=== PATIENT | female | born 1945 | race Caucasian/White ===

== ENCOUNTER → 2018-08-06 09:02 | Outpatient (CLI) | payer MEDICARE, OTHER, SELFPAY ==
--- NOTE | 2018-08-06 | DI.MRI.S_ITS ---
PROCEDURE: MR SHOULDER RT WO CON INDICATIONS: RIGHT SHOULDER PAIN TECHNIQUE: Noncontrast oblique coronal T2 fast spin echo with fat saturation, oblique sagittal T1 spin echo and T2 fast spin echo with fat saturation, axial T1 spin echo and T2 fast spin echo with fat saturation through the shoulder. COMPARISON: None. FINDINGS: Image quality: Excellent. Rotator cuff: The supraspinatus tendon appears disrupted and retracted medially, with a separation of this rapid margins by at least 2.4 cm. Additionally, the subscapular tendon is prominently thickened, measuring up to 1.2 cm in oblique AP dimension, consistent with a partial thickness tear and reactive tendinosis. The intraspinal not as is thickened and edematous, but shows no sign of disruption. Sagittal images demonstrate no muscle atrophy. Bones and bursae: No bone marrow contusions or fractures. There is a moderate degree of acromioclavicular joint degeneration. Inferior tilt of the lateral acromion contributes to chronic impingement along the normal course of the supraspinatus tendon The acromion demonstrates conventional anatomy, without an os acromiale. No pathologic subacromial-subdeltoid or subcoracoid bursal fluid is present. Capsule and soft tissues: In the absence of intra-articular contrast, the labrum and glenohumeral ligaments appear intact. The long head of the biceps tendon demonstrates normal location and morphology. The rotator interval appears normal, without fibrosis. The coracohumeral ligament is normal in thickness. IMPRESSION: Full thickness distracted supraspinatus rotator cuff tear likely secondary to chronic impingement from inferior tilt of the lateral acromion and moderate a.c. joint osteoarthritis with fibrous and osseous hypertrophy. There also is prominent thickening with internal tendon fluid signal involving the subscapularis tendon and mild thickening with internal fluid signal involving the infraspinatus tendon. At least tendinopathy is present as cause of that appearance but the prominence of the thickening of the subscapularis indicates likelihood of partial thickness tear of the substance of this tendon anteriorly. Dictated by: Billy Willett M.D. on 08/09/2018 at 10:33 Approved by: Billy Willett M.D. on 08/09/2018 at 10:57
== END ==
PROVIDERS: Visit Provider Orthopaedic Surgery
DX: M25.511 Pain in right shoulder (principal); M19.011 Primary osteoarthritis, right shoulder; M75.121 Complete rotator cuff tear or rupture of right shoulder, not specified as traumatic
CPT/HCPCS: 73221

== ENCOUNTER → 2018-11-02 10:13 | Outpatient (CLI) | payer MEDICARE, OTHER, SELFPAY ==
[2018-11-02 11:00] LABS: Add Manual Diff / Slide Review NO; Basophils Absolute Auto 0 /uL (0-100); Basophils Percent Auto 0.7 % (0-2); Eosinophils Absolute Auto 0 /uL (0-450); Eosinophils Percent Auto 0.4 % (2-4); Hematocrit 37.3 % (36-46); Hemoglobin 12.7 g/dL (12.0-16.0); Lymphocytes Absolute Auto 1200 /uL (1100-4500); Lymphocytes Percent Auto 18.7 % (25-40); Mean Corpuscular Hemoglobin 30.1 PG (26-34); Mean Corpuscular Volume 88.4 fL (80-100); Monocytes Absolute Auto 400 /uL (0-900); Monocytes Percent Auto 6.3 % (3-14); Neutrophils Absolute Auto 4800 /uL (1500-7000); Neutrophils Percent Auto 73.9 % (50-75); Platelet Count 358 X10^3/uL (150-400); Red Blood Cell Count 4.22 X10^6/uL (4.0-5.2); Red Cell Distribution Width 14.4 % (11.6-14.8); White Blood Cell Count 6.5 X10^3/uL (4.5-11.0)
[2018-11-02 11:11] LABS: Alanine Aminotransferase 30 IU/L (9-52); Albumin 4.3 g/dL (3.5-5.0); Albumin Globulin Ratio 1.5 (1.0-2.8); Alkaline Phosphatase 64 U/L (38-126); Aspartate Aminotransferase 20 IU/L (14-36); BUN Creatinine Ratio 22.9 (6-22); Bilirubin Total 0.4 mg/dL (0.2-1.3); Blood Urea Nitrogen 16 mg/dL (7-17); Calcium 10.3 mg/dL (8.4-10.2); Carbon Dioxide 27 mmol/L (22-32); Chloride 104 mmol/L (98-107); Cholesterol 254 mg/dL (140-199); Estimated Glomerular Filt Rate > 60.0 mL/min (>60); Globulin 2.9 g/dL (1.7-4.1); Glucose 110 mg/dL (80-110); HDL Cholesterol 74 mg/dL (40-60); HEMOLYSIS < 15 (0-50); LDL Cholesterol Calculated 155 mg/dL (<100); Potassium 4.2 mmol/L (3.4-5.1); Sodium 141 mmol/L (137-145); Total Protein 7.2 g/dL (6.3-8.2); Triglycerides 124 mg/dL (35-150)
[2018-11-02 11:22] LABS: Free T3, Triiodothyronine Free 4.85 pg/mL (2.77-5.27); Free T4, Direct Thyroxine 1.85 ng/dL (0.78-2.19); Vitamin D 25 Hydroxy (D3) 36.9 ng/mL (30.0-100.0)
[2018-11-02 11:36] LABS: Thyroid Stimulating Hormone 0.02 uIU/mL (0.47-4.68)
[2018-11-02 11:54] LABS: Vitamin B12 878 pg/mL (239-931)
[2018-11-04 22:26] LABS: RPR Screen Nonreactive (Nonreactive)
== END ==
PROVIDERS: Visit Provider Internal Medicine
DX: R41.3 Other amnesia (principal); E03.9 Hypothyroidism, unspecified; E55.9 Vitamin D deficiency, unspecified; E78.5 Hyperlipidemia, unspecified
CPT/HCPCS: 36415; 80053; 80061; 82306; 82607; 84439; 84443; 84481; 85025; 86592

== ENCOUNTER → 2019-04-05 11:19 | Outpatient (CLI) | payer MEDICARE, OTHER, SELFPAY ==
[2019-04-05 12:25] LABS: Free T4, Direct Thyroxine 1.29 ng/dL (0.78-2.19)
[2019-04-05 12:39] LABS: Thyroid Stimulating Hormone 0.19 uIU/mL (0.47-4.68)
[2019-04-09 18:30] LABS: Triiodothyronine T3 Total 94 ng/dL (76-181)
== END ==
PROVIDERS: PCP Internal Medicine; Visit Provider Internal Medicine
DX: E03.9 Hypothyroidism, unspecified (principal)
CPT/HCPCS: 36415; 84439; 84443; 84480

== ENCOUNTER → 2019-06-01 10:34 | Outpatient (CLI) | payer MEDICARE, OTHER, SELFPAY ==
[2019-06-01 12:52] LABS: Free T4, Direct Thyroxine 1.13 ng/dL (0.78-2.19)
[2019-06-01 13:06] LABS: TSH w/ Reflex to FT4 1.48 uIU/mL (0.47-4.68)
[2019-06-03 14:35] LABS: Triiodothyronine T3 Total 121 ng/dL (76-181)
== END ==
PROVIDERS: PCP Internal Medicine; Referring Provider Internal Medicine; Visit Provider Internal Medicine
DX: E03.9 Hypothyroidism, unspecified (principal)
CPT/HCPCS: 36415; 84439; 84443; 84480

== ENCOUNTER → 2019-09-09 09:13 | Outpatient (CLI) | payer MEDICARE, OTHER, SELFPAY ==
--- NOTE | 2019-09-09 | DI.RAD.S_ITS ---
PROCEDURE: XR ANKLE RT MIN 3V INDICATIONS: ACUTE RT ANKLE PAIN TECHNIQUE: 3 views of the ankle were acquired. COMPARISON: None. FINDINGS: Bones: No fractures or dislocations. Ankle mortise is normally aligned. No suspicious bony lesions. Chronic posterior calcaneal heterotopic ossification. Spurring and sclerosis at the tip of the lateral malleolus although this is technically age-indeterminate. Soft tissues: No tibiotalar joint effusion. Achilles tendon appears normal. IMPRESSION: Fracture deformity and lucency at the tip of the lateral malleolus, possibly acute however radiographically age-indeterminate, therefore please correlate clinically. Overlying soft tissue swelling. Chronic distal Achilles tendinopathy Dictated by: Vincent Carvajal M.D. on 09/09/2019 at 12:37 Approved by: Vincent Carvajal M.D. on 09/09/2019 at 12:39
--- NOTE | 2019-09-09 09:18 | DI.CT.S_ITS ---
PROCEDURE: CT ABDOMEN PELVIS W CON INDICATIONS: ABDOMINAL DISTENSION X SIX MONTHS TECHNIQUE: After the administration of oral and intravenous contrast, 5 mm thick sections acquired from the diaphragms to the symphysis. 5 mm thick coronal and sagittal reformats were performed. For radiation dose reduction, the following was used: automated exposure control, adjustment of mA and/or kV according to patient size. COMPARISON: None. FINDINGS: Image quality: Excellent. ABDOMEN: Lung bases: Lung bases are clear. 5 mm subpleural nodule noted in the left lung base (series 3, image 6). Heart size is normal. Solid organs: Liver is normal in size and enhancement. Mild, diffuse fatty infiltration of the liver Gallbladder is normal. Biliary system is non-dilated. Pancreas enhances normally. Spleen is normal in size and enhancement. No adrenal nodules. Kidneys are normal in size and enhancement, without hydronephrosis. Peritoneum and bowel: Moderate-sized hiatal hernia. Stomach, small bowel, and colon loops are normal in caliber and wall thickness. No free fluid or air. The appendix is normal. Nodes and vessels: No retroperitoneal or mesenteric adenopathy. Aorta and inferior vena cava are normal in caliber. Miscellaneous: Small fat-containing umbilical hernia. PELVIS: Genitourinary: Bladder wall thickness is normal. Uterus is absent. Miscellaneous: No inguinal hernias or adenopathy. Bones: No suspicious bony lesions. No vertebral body compression fractures. Spine degenerative disc disease and facet arthropathy. IMPRESSION: 1. No acute disease process. 2. No free fluid or free air. 3. No dilated loops of bowel. 4. Hepatic steatosis. 5. Moderate-sized hiatal hernia. Dictated by: Juliane Joshua MD, PhD on 09/09/2019 at 11:47 Approved by: Juliane Joshua MD, PhD on 09/09/2019 at 11:53
[2019-09-09 09:58] LABS: BUN Creatinine Ratio 19.1 (6-22); Blood Urea Nitrogen 13 mg/dL (7-17); Estimated Glomerular Filt Rate > 60.0 mL/min (>60)
== END ==
PROVIDERS: PCP Internal Medicine; Referring Provider Internal Medicine; Visit Provider Internal Medicine
DX: M25.571 Pain in right ankle and joints of right foot (principal); R60.0 Localized edema; R14.0 Abdominal distension (gaseous); K76.0 Fatty (change of) liver, not elsewhere classified; R91.1 Solitary pulmonary nodule; K44.9 Diaphragmatic hernia without obstruction or gangrene; K42.9 Umbilical hernia without obstruction or gangrene
CPT/HCPCS: 36415; 73610; 74177; 82565; 84520

== ENCOUNTER → 2020-02-08 13:18 | Outpatient (CLI) | payer MEDICARE, OTHER, SELFPAY ==
--- NOTE | 2020-02-08 | DI.CT.S_ITS ---
PROCEDURE: CT CHEST WO CON INDICATIONS: follow up lung nodule, cough TECHNIQUE: Noncontrast 2.0-2.5 mm thick sections acquired from the pulmonary apices to the posterior costophrenic angles. 7 mm thick axial MIP and 5 mm coronal and sagittal reformats were then acquired. A low radiation dose technique was utilized. COMPARISON: [facility], CT, CT ABDOMEN PELVIS W CON, 09/09/2019, 10:28. FINDINGS: Image quality: Diagnostic, given the low radiation dose technique. Lungs and pleura: No effusions or consolidations. Previously identified subpleural 5 mm left basilar nodule on series 3, image 213 is unchanged. No additional pulmonary nodules are identified. Mediastinum: Heart size is normal. No pericardial effusion. No mediastinal adenopathy by size criteria. Thoracic aorta and central pulmonary arteries are normal in size. Esophagus is normal in caliber. Mild hiatal hernia. Bones and chest wall: No suspicious bony lesions. No vertebral body compression fractures. No axillary or supraclavicular adenopathy by size criteria. Thyroid gland is unremarkable . Abdomen: Visualized upper abdomen solid organs and bowel loops appear normal in the absence of contrast. IMPRESSION: 1. Stable 5 mm left lower lobe nodule originally identified on 09/09/2019. Recommend interval follow-up as below, as it is nonspecific in appearance. Fleischner Society criteria for SOLID lung nodule followup. Nodule size (mm)Low-risk patientHigh-risk patient<6 (single or multiple)No routine followup.Optional CT at 12 months. 6-8 (single or multiple)CT at 6-12 months, then optional CT at 18-24 mo.CT at 6-12 months, then CT at 18-24 months. >8 (single)CT at 3 months, PET-CT, or biopsy. Same as for low-risk pts. >8 (multiple)CT at 3-6 months, then optional CT at 18-24 mo.CT at 3-6 months, then CT at 18-24 months. Recommendations do not apply to lung cancer screening, patients with immunosuppression, or patients with known primary cancer. Dictated by: Danielle Vanessa M.D. on 02/08/2020 at 16:01 Approved by: Danielle Vanessa M.D. on 02/08/2020 at 16:03
== END ==
PROVIDERS: PCP Internal Medicine; Referring Provider Internal Medicine; Visit Provider Internal Medicine
DX: R91.1 Solitary pulmonary nodule (principal); R05 Cough; K44.9 Diaphragmatic hernia without obstruction or gangrene
CPT/HCPCS: 71250

== ENCOUNTER → 2020-07-11 10:36 | Outpatient (CLI) | payer MEDICARE, OTHER, SELFPAY ==
[2020-07-11 11:58] LABS: COVID19 -Nasal RAPID Negative (Negative)
== END ==
PROVIDERS: PCP Family Medicine; Visit Provider Surgery
DX: Z20.822 Contact with and (suspected) exposure to COVID-19 (principal)
CPT/HCPCS: 87635; C9803

== ENCOUNTER 2020-07-12 12:04 | Day surgery (SDC) | payer MEDICARE, OTHER, SELFPAY ==
[2020-07-12] VITALS (8 sets, daily range): BP systolic 124–143; BP diastolic 66–78; PULSE 98–114; RESP 12–20; TEMP 36.2–37.4; O2SAT 95–98; BMI 27.9
--- NOTE | 2020-07-12 | PATH_ITS ---
[facility] Accession Number: [id number] . 01 Material submitted: . colon - TRANSVERSE COLON POLYP . 01 Clinical history: . SDC . 02 Diagnosis: Transverse Colon Polyp: Portions of tubular adenoma x5. MRV 07/16/2020 1321 Local . 02 Electronically signed: . Paloma Nuñez MD, Pathologist NPI- [id number] . 01 Gross description: . TRANSVERSE COLON POLYP: Received in formalin are 5 fragment(s) of pérez, soft tissue measuring 0.4 x 0.3 x 0.1 cm to 0.2 x 0.2 x 0.1 cm submitted entirely in 1 cassette(s) /QBJ 07/13/2020 0619 Local . 02 Pathologist provided ICD-10: Z12.11, K63.5 . 02 CPT . 978622 Performed at: 01 [facility] [address] [facility], [place], [place] [id number] MD Isrrael Hawthorne MD Phone: [phone] Performed at: 02 [facility] [address] [place], [place] [id number] MD Yanna Berry MD Phone: [phone]
[2020-07-12] MEDS: LACTATED RINGERS 1,000 ML 200 ML IV (12:50)
--- NOTE | 2020-07-12 13:17 | PM.HP.1 ---
History of Present Illness History of Present Illness Date Patient Seen: 07/12/20 Time Patient Seen: 13:17 Chief complaint: [facility] Narrative: The patient presents for colorectal sreening. She does have some memory difficulty she is unsure if she has ever had a previous colonoscopy. No personal or family history of colon cancer. On further history denies any recent gastrointestinal symptoms. No nausea, vomiting, abdominal pain, loss of appetite, unexplained weight loss, change in bowel habits, diarrhea, constipation, melena, hematochezia, or bright red blood per rectum. Patient History Medical History Depression GERD (gastroesophageal reflux disease) Hormone replacement therapy Hyperlipidemia Hypothyroidism Preventative health care Surgical History H/O: hysterectomy Family & Social History Social History: household members spouse Tobacco & Substance use: Tobacco type cigarettes Smoking Status Former smoker alcohol intake current alcohol intake frequency a few times a week Substance Use Type marijuana Meds Home Medications and Allergies Home Medications Medication Instructions Recorded Confirmed Type acetaminophen 500 mg tablet 500 mg PO Q6H PRN 06/06/20 History aluminum hydrox-magnesium carb PO 06/06/20 History atorvastatin 20 mg tablet 20 mg PO QPM 06/06/20 History butalbital 50 mg-acetaminophen 300 1 tab PO Q4H PRN 06/06/20 History mg tablet calcium carbonate 200 mg calcium 200 mg PO ONCE tab 06/06/20 History (500 mg) chewable tablet calcium carbonate-vitamin D3 600 1 tab PO DAILY 06/06/20 History mg (1,500 mg)-800 unit tablet cholecalciferol (vitamin D3) 25 25 mcg PO DAILY 06/06/20 History mcg (1,000 unit) capsule clindamycin phosphate 1 % lotion 1 applic TOPICAL DAILY PRN 06/06/20 History clotrimazole 2 % vaginal cream 1 appful VAGINAL BEDTIME 06/06/20 History cyclosporine 0.05 % eye drops drp OPHTHALMIC (EYE) 06/06/20 History diphenhydramine HCl 25 mg tablet 25 mg PO Q4-6H PRN tab 06/06/20 History docusate sodium 100 mg capsule 100 mg PO DAILY 06/06/20 History doxycycline hyclate 50 mg capsule 50 mg PO DAILY 06/06/20 History estradiol 1 g VAGINAL QWEEK 06/06/20 History fluticasone propionate 50 2 spray INTRANASAL DAILY 06/06/20 History mcg/actuation nasal spray,suspension food supplemt, lactose-reduced ea PO PRN 06/06/20 History levothyroxine 125 mcg tablet 125 mcg PO .COMPLEX 06/06/20 History lip protectant, cold sore prd ea TOPICAL 06/06/20 History topical ointment loperamide 1 mg/5 mL oral liquid See Rx Instructions PO Q6H PRN 06/06/20 History lutein-zeaxanthin PO 06/06/20 History magnesium citrate 125 mg capsule 250 mg PO DAILY 06/06/20 History mecobalamin (vitamin B12) 1,000 1,000 mcg PO TID tab 06/06/20 History mcg chewable tablet melatonin 5 mg tablet See Rx Instructions PO BEDTIME PRN 06/06/20 History memantine 5 mg tablet 5 mg PO BID 06/06/20 History mesalamine 1,000 mg rectal 1 g KS BEDTIME 06/06/20 History suppository mupirocin 2 % topical ointment 1 applic TOPICAL TID 06/06/20 History omeprazole 20 mg capsule,delayed 20 mg PO DAILY 06/06/20 History release pantoprazole 40 mg tablet,delayed 40 mg PO DAILY 06/06/20 History release promethazine 25 mg tablet 25 mg PO Q6H PRN 06/06/20 History sumatriptan succinate 100 mg tablet See Rx Instructions PO .COMPLEX 06/06/20 History vit C 250 mg-vit E 90 mg-zinc 40 1 tab PO BID 06/06/20 History mg-copper 1 [id number]-manptg capsule robbie alex 50 % topical pads 1 pad TOPICAL BID-QID PRN 06/06/20 History mirtazapine 15 mg tablet 15 mg PO BEDTIME #90 tab 06/11/20 Rx quetiapine 25 mg tablet 75 mg PO BEDTIME #270 tab 07/09/20 Rx Allergies Allergy/AdvReac Type Severity Reaction Status Date / Time No Known Drug Allergies Allergy Verified 07/12/20 12:21 Review of Systems Review of Systems ROS: Yes unobtainable due to mental condition (Dementia) Exam Vital Signs (past 8 hours): - 07/12/20 12:22 Temperature 97.2 F L Pulse Rate 114 H Respiratory Rate 16 Blood Pressure 124/72 Pulse Oximetry 96 Oxygen Delivery Method Room Air Narrative Exam Narrative: GENERAL-well developed elderly woman, no acute distress HEENT-no scleral icterus, hearing intact NECK-no JVD, trachea midline CVS- regular rate, no peripheral edema RESP-unlabored respiratory effort, no audible wheezing GI-soft, nontender nondistended MSK-no cyanosis or clubbing, extremities without deformity SKIN-warm, dry NEURO-alert and oriented, no focal deficits PYSCH-Appropriate mood and affect Assessment & Plan Assessment & Plan narrative: The patient requires colorectal screening and colonoscopy is recommended. Technical details were discussed. Risks, benefits, alternatives explained. Risks including but not limited to myocardial infarction, aspiration, bleeding, pain, missed lesion, incomplete examination, need for further radiographic studies, colonic perforation, and need for major abdominal surgery were discussed. All questions were answered to their satisfaction, and they are in agreement with this plan.
[2020-07-12] MEDS: ONDANSETRON 4 MG/2 ML INJ IV (13:56)
--- NOTE | 2020-07-12 14:05 | PM.OP.ENDO ---
Operative Date/Time/Diagnoses Date of procedure: 07/12/20 Time of procedure: 14:05 Pre-op diagnosis: screening colonoscopy Post-op diagnosis: same Procedure & Clinicians Study performed: Colonoscopy Polypectomy Same procedure as scheduled: Yes Indications: 75-year-old woman last colonoscopy greater than 10 years ago here for routine screening. Surgeon: Jimmy Son Procedure Notes Procedure in detail: Medications: Conscious sedation using 3mg IV midazolam and 100mcg IV of fentanyl The history and physical was performed/updated and the patient is ASA class is 2. The procedure was discussed in detail with the patient. Potential risks complications including infection, bleeding, missed diagnosis, perforation, need for surgery, and were explained. Their questions were answered and informed consent was obtained. Patient was brought to the procedure room and placed standard monitoring equipment. The patient's vital signs were monitored continuously throughout the entire procedure. Prior to starting time-out was performed. The patient was placed in the left lateral recumbent position. Procedural sedation was administered. Examination began with a thorough inspection of the perianal area there was no evidence of fissures, fistulae, external hemorrhoids or cutaneous malignancy. The colonoscopy scope was then placed into the anal canal and was advanced to the cecum, which was identified by the ileocecal valve, the appendiceal orifice and the confluence of the taenia. The scope was then slowly withdrawn examining colon thoroughly in all directions, irrigating it of any residual stool. 5 mm polyp within the transverse colon removed with biopsy forceps. Grade 1 internal him The patient tolerated the procedure well. They will be discharged once criteria are met. The prep was of good/excellent quality. The withdrawl time was 7 minutes. The sedation time was 36 minutes. Specimen(s): other (Transverse colon polyp) Complications: none Impression: Colonic polyp Post-procedure Recommendations: Colonscopy in 5 years Disposition: same day surgery
[2020-07-12] MEDS: fentaNYL 250 MCG/5 ML INJ IV (14:07)
[2020-07-12] MEDS: MIDAZOLAM 5 MG/5 ML VIAL IV (14:07)
== END 2020-07-12 15:09 | disposition home or self-care (01) ==
PROVIDERS: PCP Family Medicine; Referring Provider Surgery; Visit Provider Surgery
PROC: 0DJD8ZZ Inspection of Lower Intestinal Tract, Via Natural or Artificial Opening Endoscopic (ICD-10-PCS; CPT 45378; principal; 2020-07-12 13:00)
DX: Z12.11 Encounter for screening for malignant neoplasm of colon (principal); K21.9 Gastro-esophageal reflux disease without esophagitis; E78.5 Hyperlipidemia, unspecified; E03.9 Hypothyroidism, unspecified; K64.0 First degree hemorrhoids; K63.5 Polyp of colon
CPT/HCPCS: 45380; 99152; 99153; J2250; J2405; J3010

== ENCOUNTER → 2020-10-30 14:36 | Outpatient (CLI) | payer MEDICARE, OTHER, SELFPAY ==
[2020-10-30 16:08] LABS: Alanine Aminotransferase 31 IU/L (<35); Albumin 4.5 g/dL (3.5-5.0); Albumin Globulin Ratio 1.3 (1.0-2.8); Alkaline Phosphatase 106 U/L (38-126); Aspartate Aminotransferase 36 IU/L (14-36); BUN Creatinine Ratio 14.8 (6-22); Bilirubin Total 0.4 mg/dL (0.2-1.3); Blood Urea Nitrogen 12 mg/dL (7-17); Calcium 9.6 mg/dL (8.4-10.2); Carbon Dioxide 29 mmol/L (22-32); Chloride 104 mmol/L (98-107); Estimated Glomerular Filt Rate > 60.0 mL/min (>60); Globulin 3.4 g/dL (1.7-4.1); Glucose 104 mg/dL (80-110); HEMOLYSIS < 15 (0-50); Potassium 4.1 mmol/L (3.4-5.1); Sodium 140 mmol/L (137-145); Total Protein 7.9 g/dL (6.3-8.2)
== END ==
PROVIDERS: PCP Family Medicine; Referring Provider Registered Nurse; Visit Provider Registered Nurse
DX: M79.89 Other specified soft tissue disorders (principal)
CPT/HCPCS: 36415; 80053

== ENCOUNTER → 2020-12-04 15:50 | Outpatient (CLI) | payer MEDICARE, OTHER, SELFPAY ==
[2020-12-04 17:44] LABS: Alanine Aminotransferase 26 IU/L (<35); Albumin 4.7 g/dL (3.5-5.0); Albumin Globulin Ratio 1.4 (1.0-2.8); Alkaline Phosphatase 107 U/L (38-126); Aspartate Aminotransferase 30 IU/L (14-36); BUN Creatinine Ratio 19.2 (6-22); Bilirubin Total 0.5 mg/dL (0.2-1.3); Blood Urea Nitrogen 15 mg/dL (7-17); Calcium 10.2 mg/dL (8.4-10.2); Carbon Dioxide 30 mmol/L (22-32); Chloride 102 mmol/L (98-107); Cholesterol 190 mg/dL (140-199); Estimated Glomerular Filt Rate > 60.0 mL/min (>60); Globulin 3.4 g/dL (1.7-4.1); Glucose 104 mg/dL (80-110); HDL Cholesterol 54 mg/dL (40-60); HEMOLYSIS < 15 (0-50); LDL Cholesterol Calculated 105 mg/dL (<100); Potassium 4.5 mmol/L (3.4-5.1); Sodium 140 mmol/L (137-145); Total Protein 8.1 g/dL (6.3-8.2); Triglycerides 153 mg/dL (35-150)
[2020-12-04 17:57] LABS: Free T4, Direct Thyroxine 1.18 ng/dL (0.78-2.19)
[2020-12-04 18:11] LABS: Thyroid Stimulating Hormone 7.41 uIU/mL (0.47-4.68)
== END ==
PROVIDERS: PCP Family Medicine; Referring Provider Family Medicine; Visit Provider Family Medicine
DX: E03.9 Hypothyroidism, unspecified (principal); F32.9 Major depressive disorder, single episode, unspecified; E78.5 Hyperlipidemia, unspecified
CPT/HCPCS: 36415; 80053; 80061; 84439; 84443

== ENCOUNTER → 2021-01-21 | Outpatient (CLI) | payer MEDICARE, OTHER, SELFPAY ==
--- NOTE | 2021-01-21 15:21 | DI.MG.S_ITS ---
BILATERAL DIGITAL SCREENING MAMMOGRAM 3D/2D WITH CAD: 01/21/2021 CLINICAL: Routine screening. Family history of breast cancer. Baseline. No prior exams were available for comparison. Current study was also evaluated with a Computer Aided Detection (CAD) system. The tissue of both breasts is heterogeneously dense. This may lower the sensitivity of mammography. There are grouped fine calcifications in the right breast at 11 o'clock posterior depth. No other significant masses, calcifications, or other findings are seen in either breast. IMPRESSION: INCOMPLETE: NEEDS ADDITIONAL IMAGING EVALUATION The grouped fine calcifications in the right breast are indeterminate. Mediolateral, spot magnification, and additional views are recommended. This exam was interpreted at Station ID: [id number]. NOTE: For mammograms, a report in lay terms will be sent to the patient. Approximately 15% of breast malignancies will not be visualized mammographically. In the management of a palpable breast mass, a negative mammogram must not discourage biopsy of a clinically suspicious lesion. Electronically Signed By: Isrrael duckworth/:01/31/2021 16:53:20 letter sent: Additional Imaging Needed ACR BI-RADS Category 0: Incomplete [id number]
== END ==
LOC: MAMMO 15:21
PROVIDERS: PCP Family Medicine; Referring Provider Family Medicine; Visit Provider Family Medicine
DX: Z12.31 Encounter for screening mammogram for malignant neoplasm of breast (principal); Z80.3 Family history of malignant neoplasm of breast
CPT/HCPCS: 77063; 77067

== ENCOUNTER → 2021-02-26 12:35 | Outpatient (CLI) | payer MEDICARE, OTHER, SELFPAY ==
--- NOTE | 2021-02-26 | DI.MG.S_ITS ---
BILATERAL DIGITAL DIAGNOSTIC MAMMOGRAM 3D/2D WITH ADDITIONAL VIEWS: 02/26/2021 CLINICAL: Abnormal Mammogram. Comparison is made to exams dated: 01/21/2021 mammogram - [facility], 08/10/2017 mammogram, 06/20/2015 mammogram, and 05/18/2015 mammogram - [facility]. The tissue of both breasts is heterogeneously dense. This may lower the sensitivity of mammography. There are benign grouped fine calcifications in the right breast at 11 o'clock posterior depth. There is a biopsy clip associated with the calcifications. These calcifications do not appear significantly changed when compared to prior exams dating back to 05/18/2015, and are therefore considered benign. There are benign diffuse fine calcifications in the left breast. No other significant masses or calcifications are seen in either breast. IMPRESSION: BENIGN There is no mammographic evidence of malignancy. A 1 year screening mammogram is recommended. This exam was interpreted at Station ID: [id number]. NOTE: For mammograms, a report in lay terms will be sent to the patient. Approximately 15% of breast malignancies will not be visualized mammographically. In the management of a palpable breast mass, a negative mammogram must not discourage biopsy of a clinically suspicious lesion. Electronically Signed By: Ronald logan/sourav:02/26/2021 13:50:56 letter sent: Normal Exam ACR BI-RADS Category 2: Benign Finding(s) 3342F
== END ==
PROVIDERS: PCP Family Medicine; Referring Provider Family Medicine; Visit Provider Family Medicine
DX: R92.8 Other abnormal and inconclusive findings on diagnostic imaging of breast (principal); R92.1 Mammographic calcification found on diagnostic imaging of breast
CPT/HCPCS: 77066; G0279

== ENCOUNTER → 2021-08-12 10:53 | Outpatient (CLI) | payer MEDICARE, OTHER, SELFPAY ==
[2021-08-12 13:41] LABS: COVID19 -Nasal RAPID Negative (Negative)
== END ==
PROVIDERS: PCP Family Medicine; Visit Provider Family Medicine Sleep Medicine
DX: Z20.822 Contact with and (suspected) exposure to COVID-19 (principal)
CPT/HCPCS: 87635; C9803

== ENCOUNTER 2021-08-14 09:01 | Day surgery (SDC) | payer MEDICARE, OTHER, SELFPAY ==
--- NOTE | 2021-08-14 | PATH_ITS ---
[facility] Accession Number: [id number] . 01 Material submitted: . PART A: body - GASTRITIS PART B: gastrointestinal site - GASTRIC POLYPS . 01 Clinical history: . A: R/O H. PYLORI . 01 Diagnosis: A. Stomach, Biopsies: Antral and body-type mucosa with mild chronic gastritis. Negative for Helicobacter by immunohistochemistry. Negative for intestinal metaplasia. Negative for dysplasia and malignancy. . B. Stomach, Polyps, Biopsies: Fundic gland polyps. No evidence of Helicobacter organisms on H/E stain. Negative for intestinal metaplasia. Negative for dysplasia and malignancy. MRV 08/19/2021 1255 Local . 01 Electronically signed: . Yanna Berry MD, Pathologist NPI- [id number] . 01 Gross description: . Part A: GASTRITIS: Received in formalin are 3 fragment(s) of pérez, soft tissue measuring 0.3 x 0.2 x 0.1 cm to 0.2 x 0.1 x 0.1 cm submitted entirely in 1 cassette(s) Part B: GASTRIC POLYPS: Received in formalin are 4 fragment(s) of pérez, soft tissue measuring 0.3 x 0.2 x 0.1 cm to 0.2 x 0.1 x 0.1 cm submitted entirely in 1 cassette(s) /CPE 08/15/2021 0845 Local . 01 Microscopic: . A. An immunohistochemical stain was performed to evaluate for Helicobacter organisms and is negative. The control stain showed appropriate reactivity. . * This test was developed and its performance characteristics determined by [employer]. It has not been cleared or approved by the U.S. Food and Drug Administration. The FDA has determined that such clearance or approval is not necessary. This test is used for clinical purposes. It should not be regarded as investigational or for research. . 01 Pathologist provided ICD-10: R11.0 . 01 CPT . 315736, 010879, J07436 Specimen Comment: A courtesy copy of this report has been sent to [phone] Performed at: 01 [facility] [address] [place] [id number] MD Isrrael Hawthorne MD Phone: [phone]
[2021-08-14 09:34] VITALS: BMI 28.7
[2021-08-14 09:48] VITALS: BP 128/75; PULSE 114; RESP 94; TEMP 36.2
[2021-08-14] MEDS: SODIUM CHLORIDE 0.9% 1,000 ML 70 ML IV (10:08)
--- NOTE | 2021-08-14 10:55 | PM.HP.1 ---
History of Present Illness History of Present Illness Date Patient Seen: 08/14/21 Time Patient Seen: 10:45 Chief complaint: SDC Narrative: Patient is a very pleasant 76-year-old female who presented for upper endoscopy. She denies changes to her symptoms since she was seen in the office for nausea, vomiting, and symptoms of heartburn. This gentleman may have been more regurgitation after eating. She states the symptoms have slightly improved since her office visit. Patient History Medical History Abnormal mammogram of left breast Dementia Depression GERD (gastroesophageal reflux disease) Hyperlipidemia Hypothyroidism Preventative health care Seborrheic keratosis Swelling of lower extremity Surgical History (Updated 08/14/21 @ 09:30 by Sarah Che RN) H/O: hysterectomy History of colonoscopy History of esophagogastroduodenoscopy (EGD) History of tonsillectomy Family & Social History Family History (Updated 12/11/20 @ 09:35 by Grupo Brooks DO) Father Congestive heart failure Mother Cancer Social History: household members spouse Tobacco & Substance use: Tobacco type cigarettes Smoking Status Former smoker alcohol intake current alcohol intake frequency a few times a week Substance Use Type marijuana Meds Home Medications and Allergies Home Medications Medication Instructions Recorded Confirmed Type calcium carbonate 200 mg calcium 200 mg PO ONCE tab 06/06/20 08/14/21 History (500 mg) chewable tablet (Tums) cholecalciferol (vitamin D3) 25 2,000 unit PO DAILY 06/06/20 08/14/21 History mcg (1,000 unit) capsule lutein-zeaxanthin 1 tab PO DAILY 06/06/20 08/14/21 History memantine 5 mg tablet 5 mg PO BID 06/06/20 08/14/21 History vit C 250 mg-vit E 90 mg-zinc 40 1 tab PO BID 06/06/20 08/14/21 History mg-copper 1 [id number] capsule (PreserVision AREDS-2) atorvastatin 20 mg tablet 20 mg PO QPM #90 tab 02/01/21 08/14/21 Rx levothyroxine 150 mcg tablet 150 mcg PO DAILY #90 tab 03/06/21 08/14/21 Rx mirtazapine 15 mg tablet 15 mg PO BEDTIME #90 tab 03/15/21 08/14/21 Rx mesalamine 1,000 mg rectal See Rx Instructions .ROUTE 08/02/21 08/14/21 Rx suppository .COMPLEX #30 suppository quetiapine 25 mg tablet 75 mg PO SEEINSTR 08/14/21 08/14/21 History Allergies Allergy/AdvReac Type Severity Reaction Status Date / Time meperidine [From Demerol] AdvReac Intermediate hallucinati Verified 08/14/21 09:38 ons codeine AdvReac Mild hyper Verified 08/14/21 09:38 attentive Review of Systems Review of Systems ROS: Yes All systems reviewed with the patient and are negative except as otherwise documented Exam Vital Signs (past 8 hours): - 08/14/21 09:48 Temperature 97.1 F L Pulse Rate 114 H Respiratory Rate 94 H Blood Pressure 128/75 Oxygen Delivery Method Room Air Const General: cooperative, healthy appearing, comfortable, well developed, well groomed and No acute distress HENMT Head: normocephalic and atraumatic Resp Effort & Inspection: normal respiratory effort and able to speak in complete sentences Auscultation: clear to auscultation bilaterally Cardio Rate: regular rate Rhythm: regular rhythm GI Palpation: soft and No rigid Assessment & Plan Assessment & Plan narrative: 1. EGD today, further recommendations to follow Time Spent With Patient Critical Care time: I spent a total of [] minutes of critical care time on this patient's care today; this time is exclusive of procedural time.
[2021-08-14 11:26] VITALS: BP 121/60; PULSE 97; RESP 20; TEMP 36.4; O2SAT 94
--- NOTE | 2021-08-14 11:27 | P.OP.EGD_ITS ---
Operative Date/Time/Diagnoses Date of procedure: 08/14/21 Time of procedure: 11:07 Procedure Notes Procedure in detail: Surgeon: Jeny Rowley DO Procedure: Esophagogastroduodenoscopy with biopsy and dilation Preoperative diagnosis: 1. Nausea vomiting 2. Regurgitation 3. Gastroesophageal reflux Postoperative diagnosis: 1. Erosive gastritis biopsy to rule out H pylori 2. Gastric polyps, biopsied 3. Tortuous lower and middle 3rd of esophagus with LA-a esophagitis 4. Benign-appearing esophageal stricture dilated to 13.5 mm 5. Small hiatal hernia 6. Normal-appearing duodenum Medications: Monitored anesthesia care Preanesthesia Assessment An H and P was performed/updated and the Px?s ASA class is 2. The procedure was discussed in detail with the patient. The potential risks and complications including infection, bleeding, missed lesions, perforation, need for surgery in case of perforation, prolonged hospital stay, and were explained. A brief question and answer period was allotted and once all questions were answered, informed consent was obtained. The patient was brought back to the procedure room and placed on standard monitoring. The patient?s vital signs were monitored continuously throughout the entire procedure. Prior to starting, a timeout was performed to confirm the patient?s identity, allergies, medications, and procedure. Procedure in detail The patient was placed in left lateral decubitus position and a bite block was inserted. The tip of the upper endoscope was placed into the mouth and advanced without difficulty under direct visualization into the esophagus. Esophagus: Tortuous appearing lower and middle 3rd of the esophagus Benign-appearing stricture at the GE junction, dilated with balloon dilation to 13.5 mm LA-a esophagitis Stomach: Gastritis the antrum body, biopsy to rule out H pylori Gastric polyps scattered throughout the stomach, biopsied Small hiatal hernia Duodenum: Normal-appearing duodenum The patient tolerated the procedure well and will be brought back to the [facility] to be discharged once criteria are met. Complications There were no complications and estimated blood loss was minimal. Recommendations: Resume previous diet Continue outPx medications Follow up pathology results Office follow up to be scheduled An emergency contact number was given to the patient for any complications related to the procedure
[2021-08-14 11:31] VITALS: BP 124/59; PULSE 96; RESP 15; O2SAT 96
[2021-08-14 11:38] VITALS: BP 124/70; PULSE 103; RESP 14; TEMP 37.1; O2SAT 97
[2021-08-14 11:42] VITALS: BP 126/69; PULSE 98; RESP 16; TEMP 36.9; O2SAT 99
[2021-08-14 11:55] VITALS: BP 128/76; PULSE 94; RESP 16; TEMP 36.6; O2SAT 96
== END 2021-08-14 12:04 | disposition home or self-care (01) ==
PROVIDERS: Student in an Organized Health Care Education/Training Program; PCP Family Medicine; Referring Provider Internal Medicine Gastroenterology; Visit Provider Internal Medicine Gastroenterology
PROC: 0DJ08ZZ Inspection of Upper Intestinal Tract, Via Natural or Artificial Opening Endoscopic (ICD-10-PCS; CPT 43235; principal; 2021-08-14 10:30)
DX: K21.00 Gastro-esophageal reflux disease with esophagitis, without bleeding (principal); K44.9 Diaphragmatic hernia without obstruction or gangrene; K31.7 Polyp of stomach and duodenum; K29.50 Unspecified chronic gastritis without bleeding
CPT/HCPCS: 43249; 43239; J2704

== ENCOUNTER → 2021-10-04 10:57 | Outpatient (CLI) | payer MEDICARE, OTHER, SELFPAY ==
--- NOTE | 2021-10-04 11:02 | DI.RAD.S_ITS ---
PROCEDURE: XR LUMBAR SPINE MIN 4V INDICATIONS: progressive low back pain over past month TECHNIQUE: 5 views of the lumbar spine were acquired, including bilateral oblique views. COMPARISON: None. FINDINGS: Bones: 5 nonrib-bearing vertebrae are present. Mild levoscoliosis. There is normal trace retrolisthesis of L3 on L4. No vertebral body compression fractures. No suspicious bony lesions. Degenerative disc disease, moderate at L4-L5 and L5-S1, mild at other levels. Moderate facet arthropathy at L4-L5 and L5-S1. Soft tissues: Overlying bowel gas pattern is normal. Mild atherosclerotic calcifications. Oblique images: No pars defects. IMPRESSION: 1. Moderate degenerative disc and facet disease. Dictated by: Jolene Adhikari M.D. on 10/04/2021 at 12:33 Approved by: Jolene Adhikari M.D. on 10/04/2021 at 12:35
== END ==
PROVIDERS: PCP Family Medicine; Referring Provider Family Medicine; Visit Provider Family Medicine
DX: M51.36 Other intervertebral disc degeneration, lumbar region (principal); M51.37 Other intervertebral disc degeneration, lumbosacral region; M47.816 Spondylosis without myelopathy or radiculopathy, lumbar region; M47.817 Spondylosis without myelopathy or radiculopathy, lumbosacral region; M54.50 Low back pain, unspecified
CPT/HCPCS: 72110

== ENCOUNTER → 2022-06-09 11:23 | Outpatient (CLI) | payer MEDICARE, OTHER, SELFPAY ==
--- NOTE | 2022-06-09 11:24 | DI.MG.S_ITS ---
BILATERAL DIGITAL SCREENING MAMMOGRAM 3D/2D WITH CAD: 06/09/2022 CLINICAL: Routine screening. Comparison is made to exams dated: 02/26/2021 mammogram, 01/21/2021 mammogram - [facility], 08/10/2017 mammogram, and 06/20/2015 mammogram - [facility]. Both breasts are heterogeneously dense, which may obscure small masses (category c / 51-75% glandular tissue). Current study was also evaluated with a Computer Aided Detection (CAD) system. There are benign masses in both breasts. There also are benign calcifications in both breasts. No significant masses, calcifications, or other findings are seen in either breast. There has been no significant interval change. IMPRESSION: BENIGN There is no mammographic evidence of malignancy. A 1 year screening mammogram is recommended. Based on the Tyrer Cuzick model (a risk assessment model) the patient's lifetime risk is 3.6% and her 10 year risk is 0.0%. According to the ACR, ACS, and NCCN guidelines, an annual breast MRI exam along with mammogram is recommended if the patient's lifetime risk is 20% or greater. This exam was interpreted at Station ID: [id number]. NOTE: For mammograms, a report in lay terms will be sent to the patient. Approximately 15% of breast malignancies will not be visualized mammographically. In the management of a palpable breast mass, a negative mammogram must not discourage biopsy of a clinically suspicious lesion. Electronically Signed By: Win claudio/sourav:06/09/2022 13:02:36 letter sent: Normal Exam ACR BI-RADS Category 2: Benign Finding(s) 3342F
--- NOTE | 2022-06-09 11:24 | DI.CT.S_ITS ---
PROCEDURE: CT HEAD/BRAIN WO CON INDICATIONS: progressive atypical headaches TECHNIQUE: Noncontrast 4.5 mm thick angled axial sections acquired from the foramen magnum to the vertex, with coronal and sagittal reformats. For radiation dose reduction, the following was used: automated exposure control, adjustment of mA and/or kV according to patient size. COMPARISON: None. FINDINGS: Image quality: Excellent. CSF spaces: Basal cisterns are patent. No extra-axial fluid collections. The ventricles are symmetric in size and shape. Brain: No intracranial bleeds or masses. There is cerebral volume loss for age, with resultant ventricular and sulcal prominence. There are periventricular and deep white matter chronic small vessel ischemic changes. There is intracranial internal carotid artery atherosclerosis. Skull and face: Calvarium and visualized facial bones appear intact, without suspicious lesions. Sinuses: Visualized sinuses and mastoids are clear. IMPRESSION: 1. No acute intracranial process. 2. Mild to moderate atrophy and chronic microvascular ischemic changes. Dictated by: Danielle Vanessa M.D. on 06/09/2022 at 14:33 Approved by: Danielle Vanessa M.D. on 06/09/2022 at 14:33
== END ==
PROVIDERS: PCP Family Medicine; Referring Provider Family Medicine; Visit Provider Family Medicine
DX: Z12.31 Encounter for screening mammogram for malignant neoplasm of breast (principal); G43.909 Migraine, unspecified, not intractable, without status migrainosus
CPT/HCPCS: 70450; 77063; 77067

== ENCOUNTER → 2022-12-10 09:58 | Outpatient (CLI) | payer MEDICARE, OTHER, SELFPAY ==
[2022-12-10 10:50] LABS: Add Manual Diff / Slide Review NO; Basophils Absolute Auto 100 /uL (0-100); Eosinophils Absolute Auto 100 /uL (0-450); Eosinophils Percent Auto 1.1 % (2-4); Hematocrit 38.1 % (36-46); Lymphocytes Absolute Auto 1500 /uL (1100-4500); Lymphocytes Percent Auto 21.9 % (25-40); Mean Corpuscular Volume 88.3 fL (80-100); Monocytes Absolute Auto 500 /uL (0-900); Monocytes Percent Auto 7.8 % (3-14); Neutrophils Absolute Auto 4600 /uL (1500-7000); Neutrophils Percent Auto 68.2 % (50-75); Platelet Count 319 X10^3/uL (150-400); Red Blood Cell Count 4.32 X10^6/uL (4.0-5.2); Red Cell Distribution Width 14.9 % (11.6-14.8); White Blood Cell Count 6.7 X10^3/uL (4.5-11.0)
[2022-12-10 11:13] LABS: Alanine Aminotransferase 24 IU/L (<35); Albumin 4.2 g/dL (3.5-5.0); Albumin Globulin Ratio 1.4 (1.0-2.8); Alkaline Phosphatase 106 U/L (38-126); Aspartate Aminotransferase 24 IU/L (14-36); BUN Creatinine Ratio 22.1 (6-22); Bilirubin Total 0.2 mg/dL (0.2-1.3); Blood Urea Nitrogen 15 mg/dL (7-17); Calcium 9.6 mg/dL (8.4-10.2); Carbon Dioxide 26 mmol/L (22-32); Chloride 102 mmol/L (98-107); Estimated Glomerular Filt Rate > 60 mL/min (>60); Globulin 3.1 g/dL (1.7-4.1); Glucose 122 mg/dL (80-110); HEMOLYSIS < 15 (0-50); Potassium 4.8 mmol/L (3.4-5.1); Sodium 137 mmol/L (137-145); Total Protein 7.3 g/dL (6.3-8.2)
[2022-12-10 11:42] LABS: Thyroid Stimulating Hormone 0.124 uIU/mL (0.47-4.68)
== END ==
PROVIDERS: PCP Family Medicine; Referring Provider Family Medicine; Visit Provider Family Medicine
DX: E03.9 Hypothyroidism, unspecified (principal); E78.5 Hyperlipidemia, unspecified; I10 Essential (primary) hypertension
CPT/HCPCS: 36415; 80053; 84439; 84443; 85025

== ENCOUNTER → 2023-06-05 07:54 | Outpatient (CLI) | payer MEDICARE, OTHER, SELFPAY ==
[2023-06-05 08:40] LABS: Add Manual Diff / Slide Review NO; Basophils Absolute Auto 0 /uL (0-100); Basophils Percent Auto 0.5 % (0-2); Eosinophils Absolute Auto 100 /uL (0-450); Eosinophils Percent Auto 1.3 % (2-4); Hematocrit 37.4 % (36-46); Hemoglobin 12.3 g/dL (12.0-16.0); Lymphocytes Absolute Auto 1700 /uL (1100-4500); Lymphocytes Percent Auto 26.3 % (25-40); Mean Corpuscular Hemoglobin 29.9 PG (26-34); Mean Corpuscular Volume 90.4 fL (80-100); Monocytes Absolute Auto 500 /uL (0-900); Monocytes Percent Auto 8.4 % (3-14); Neutrophils Absolute Auto 4100 /uL (1500-7000); Neutrophils Percent Auto 63.5 % (50-75); Platelet Count 319 X10^3/uL (150-400); Red Blood Cell Count 4.13 X10^6/uL (4.0-5.2); Red Cell Distribution Width 15.3 % (11.6-14.8); White Blood Cell Count 6.5 X10^3/uL (4.5-11.0)
[2023-06-05 08:49] LABS: Hemoglobin A1C% w Est Avg Glu 6.2 % (4.0-6.0)
[2023-06-05 09:05] LABS: Alanine Aminotransferase 22 IU/L (<35); Albumin 4.1 g/dL (3.5-5.0); Albumin Globulin Ratio 1.2 (1.0-2.8); Alkaline Phosphatase 98 U/L (38-126); Aspartate Aminotransferase 24 IU/L (14-36); BUN Creatinine Ratio 19.4 (6-22); Bilirubin Total 0.3 mg/dL (0.2-1.3); Blood Urea Nitrogen 14 mg/dL (7-17); Calcium 9.2 mg/dL (8.4-10.2); Carbon Dioxide 30 mmol/L (22-32); Chloride 107 mmol/L (98-107); Cholesterol 167 mg/dL (140-199); Estimated Glomerular Filt Rate > 60 mL/min (>60); Globulin 3.5 g/dL (1.7-4.1); Glucose 116 mg/dL (80-110); HDL Cholesterol 46 mg/dL (40-60); HEMOLYSIS < 15 (0-50); LDL Cholesterol Calculated 87 mg/dL (<100); Potassium 4.7 mmol/L (3.4-5.1); Sodium 141 mmol/L (137-145); Total Protein 7.6 g/dL (6.3-8.2); Triglycerides 171 mg/dL (35-150)
[2023-06-05 09:19] LABS: Free T4, Direct Thyroxine 0.92 ng/dL (0.78-2.19)
[2023-06-05 09:33] LABS: Thyroid Stimulating Hormone 1.36 uIU/mL (0.47-4.68)
== END ==
PROVIDERS: PCP Family Medicine; Referring Provider Family Medicine; Visit Provider Family Medicine
DX: R73.03 Prediabetes (principal); E78.5 Hyperlipidemia, unspecified; M54.50 Low back pain, unspecified; K21.9 Gastro-esophageal reflux disease without esophagitis; E03.9 Hypothyroidism, unspecified
CPT/HCPCS: 36415; 80053; 80061; 83036; 84439; 84443; 85025

== ENCOUNTER 2023-06-18 14:15 | Emergency (ER) | payer MEDICARE, OTHER, SELFPAY ==
[2023-06-18 14:29] VITALS: BP 124/59; PULSE 96; RESP 18; TEMP 36.6; O2SAT 96; BMI 31.5
--- NOTE | 2023-06-18 15:00 | ED.EXTPRO ---
HPI - Extremity Problem <Gamal Simpson PA-C - Last Filed: 06/18/23 15:20> General Chief complaint: Extremity Problem,Nontraumatic Stated complaint: severe ankle swelling bilateral Source: patient Mode of arrival: Ambulatory History of Present Illness HPI Narrative: This is a 78-year-old female presents emergency department due to bilateral lower extremity swelling that has been affecting her for the last year. She states that hit has got slightly worse over the last week causing to come in. She denies any pain to the posterior calves. Denies any fevers, chest pain, shortness of breath, or any other concerning signs or symptoms. States she has been walking more than usual. Related Data Home Medications Medication Instructions Recorded Confirmed calcium carbonate 200 mg calcium 200 mg PO ONCE 06/06/20 06/09/23 (500 mg) chewable tablet (Tums) cholecalciferol (vitamin D3) 25 2,000 unit PO DAILY 06/06/20 06/09/23 mcg (1,000 unit) capsule lutein-zeaxanthin 1 tab PO DAILY 06/06/20 06/09/23 vit C 250 mg-vit E 90 mg-zinc 40 1 tab PO BID 06/06/20 06/09/23 mg-copper 1 sw-[id number]-[id number] capsule (PreserVision AREDS-2) cyclosporine 0.05 % eye drops in a drp EYE-BOTH 11/28/21 06/09/23 dropperette (Restasis) acetaminophen 500 mg tablet 500 mg PO Q6H PRN 05/22/22 06/09/23 (Tylenol Extra Strength) medical marijuana PO 05/22/22 06/09/23 sumatriptan succinate 100 mg tablet 100 mg PO DIRECTED 06/09/23 06/18/23 Previous Rx's Medication Instructions Recorded memantine 5 mg tablet 5 mg PO BID #90 tabs 12/23/22 mesalamine 1,000 mg rectal See Rx Instructions .Route 01/16/23 suppository .COMPLEX #90 supp atorvastatin 20 mg tablet 20 mg PO QPM #90 tabs 02/09/23 mirtazapine 15 mg tablet 15 mg PO BEDTIME #90 tabs 02/09/23 quetiapine 25 mg tablet 75 mg (3 x 25 mg) PO SEEINSTR #270 04/27/23 tabs levothyroxine 150 mcg tablet 150 mcg PO DAILY #90 tabs 06/02/23 Allergies Allergy/AdvReac Type Severity Reaction Status Date / Time meperidine [From Demerol] AdvReac Intermediate hallucinati Verified 06/18/23 14:31 ons codeine AdvReac Mild hyper Verified 06/18/23 14:31 attentive Review of Systems <Gamal Simpson PA-C - Last Filed: 06/18/23 15:20> Review of Systems Narrative: GENERAL: Denies chills, fatigue, malaise, fever, sweats. HEENT: Denies sinus pain, ear pain, sore throat, difficulty swallowing, dizziness. RESPIRATORY: Denies dyspnea, cough, wheezing, hemoptysis, sputum. CARDIOVASCULAR: Denies chest pain, palpitations, orthopnea, edema, GASTROINTESTINAL: Denies nausea, vomiting, abdominal pain, diarrhea, constipation, melena. : Denies dysuria, frequency, incontinence, hematuria, urinary retention. MUSCULOSKELETAL: Reports peripheral edema of lower extremities SKIN: Denies rash, skin lesions, or other NEUROLOGIC: Denies weakness, headache, numbness, change in speech, confusion, seizures, incoordination. PSYCHIATRIC: No concerning psychosocial issues. 12 point review of systems is negative except for those stated above Patient History <Gamal Simpson PA-C - Last Filed: 06/18/23 15:20> Medical History Pre-diabetes Migraine headache Well adult exam Greater trochanteric bursitis of right hip Lower back pain Abnormal mammogram of left breast Seborrheic keratosis Dementia Swelling of lower extremity Hyperlipidemia GERD (gastroesophageal reflux disease) Preventative health care Hypothyroidism Depression Surgical History History of esophagogastroduodenoscopy (EGD) History of tonsillectomy History of colonoscopy H/O: hysterectomy Family History Father Congestive heart failure Mother Cancer Social History (Updated 12/11/20 @ 09:36 by Grupo Brooks DO) marital status: household members: spouse Smoking Status: Former smoker alcohol intake: current Smoking Status: Former smoker alcohol intake frequency: a few times a week Substance Use Type: marijuana Exam <Gamal Simpson PA-C - Last Filed: 06/18/23 15:20> Narrative Exam Narrative: GENERAL: Well-developed patient, in mild distress. HEAD: Atraumatic. Normocephalic. EYES: Pupils equal round and reactive. Extraocular motions intact. No scleral icterus. No injection or drainage. ENT: Nose without bleeding, purulent drainage. Throat without erythema, tonsillar hypertrophy or exudate. Airway patent. NECK: Trachea midline. Non tender EXTREMITIES: Bilateral 2+ pitting edema to lower extremities. No pain with palpation to either with the posterior calves. Neurovascularly intact throughout. Slight discoloration to the left ankle consistent with chronic venous stasis changes. Not warm to the touch. NEURO: AOx3. SKIN: No rash or erythema of visible areas Initial Vital Signs Initial Vital Signs: Vital Signs Temperature 98 F 06/18/23 14:29 Pulse Rate 96 H 06/18/23 14:29 Respiratory Rate 18 06/18/23 14:29 Blood Pressure 124/59 L 06/18/23 14:29 Pulse Oximetry 96 06/18/23 14:29 Oxygen Delivery Method Room Air 06/18/23 14:29 <Roxanna Schaeffer MD - Last Filed: 06/18/23 18:10> Initial Vital Signs Initial Vital Signs: Vital Signs Temperature 98 F 06/18/23 14:29 Pulse Rate 96 H 06/18/23 14:29 Respiratory Rate 18 06/18/23 14:29 Blood Pressure 124/59 L 06/18/23 14:29 Pulse Oximetry 96 06/18/23 14:29 Oxygen Delivery Method Room Air 06/18/23 14:29 Course <Gamal Simpson PA-C - Last Filed: 06/18/23 15:20> Vital Signs Vital signs: Vital Signs - 8 hr 06/18/23 14:29 06/18/23 15:27 Temperature 98 F Pulse Rate 96 H 107 H Respiratory Rate 18 14 Blood Pressure 124/59 L 126/72 Pulse Oximetry 96 96 Oxygen Delivery Method Room Air Room Air <Roxanna Schaeffer MD - Last Filed: 06/18/23 18:10> Vital Signs Vital signs: Vital Signs - 8 hr 06/18/23 14:29 06/18/23 15:27 Temperature 98 F Pulse Rate 96 H 107 H Respiratory Rate 18 14 Blood Pressure 124/59 L 126/72 Pulse Oximetry 96 96 Oxygen Delivery Method Room Air Room Air MDM - Extremity (Nontraumatic) <Gamal Simpson PA-C - Last Filed: 06/18/23 15:20> [facility] Narrative Medical decision making narrative: ED course: This is a 78-year-old female presents emergency department due to acute on chronic lower extremity edema. She states it is slightly worsened over the last week to the left lower extremity. There was no pain with palpation and no significant unilateral edema noted. Low concern for DVT. She was not having any should chest pain or shortness of breath. Suspect this is a chronic problem as this has been affecting for the last year with some chronic venous stasis changes and discoloration to the left ankle area. Recommended she speak with the primary care provider for further management. Recommended elevation and compression stockings until she was able to follow up with them. No history of CHF. CC: Lower extremity edema Complicating co-morbidities: History of chronic swelling of the lower extremities Data collected from: Previous notes Medical records reviewed: Patient was not been to this emergency department in the past. History of Alzheimer's. History of hyperlipidemia, prediabetes, hypothyroidism. Has a chronic history of swelling of the lower extremities. History of bipolar disorder. Differential considered, but not limited to: DVT, peripheral arterial disease, CHF exacerbation, chronic peripheral edema Exam documented above, pertinent findings include: 2+ pitting edema bilaterally. No significant tenderness to palpation to the posterior calf worrisome for DVT Lab Test results independently reviewed as above. Pertinent findings: None obtained Imaging studies independently reviewed: None obtained Scores Used: None MIPS Elements: None Consultations: None Treatments: None Re-evaluations: No Discussion: Discussed plan with the patient was comfortable with the plan Diagnosis: Chronic peripheral edema Disposition: see below, along with detailed discharge instructions that have been reviewed with patient as well as indications for ED re-evaluation and additional outpatient follow up Discharge Plan Departure Patient Disposition: Home Clinical Impression: Chronic venous stasis Instructions: DI for Peripheral Edema -- Bilateral Activity Restrictions/Additional Instructions: Thank you for coming to the [facility] Emergency Department today. As we discussed with the recommend you speak to your primary care provider for further management of your lower extremity swelling. Compression stockings may help with your symptoms. I recommend you speak with them for further options to help with the swelling. It does not appear infected and I have a low concern for any kind of ?blood clot?. I suspect these are chronic changes for you as they have ineffective for the last year. Please return to the emergency department if you develop any chest pain, shortness of breath, significant pain, or any other concerning signs or symptoms. I hope you feel better soon. Please follow up with your primary care provider within a week if your symptoms continue. If you do not have a primary care provider please contact the [facility] Resource line at [phone]. They will ask some questions about your medical history and help you get set up with a provider in the community. Prescriptions: No Action cholecalciferol (vitamin D3) 25 mcg (1,000 unit) capsule 2,000 unit PO DAILY calcium carbonate [Tums] 200 mg calcium (500 mg) tablet,chewable 200 mg PO ONCE Patient Comments: The patient states it has been a while since I took TUMS lutein-zeaxanthin 1 tab PO DAILY PreserVision AREDS-2 250-90-40-1 mg capsule 1 tab PO BID memantine 5 mg tablet 5 mg PO BID Qty: 90 3RF mesalamine 1,000 mg suppository See Rx Instructions .ROUTE .COMPLEX Qty: 90 1RF Dose Instruction: INSERT 1 SUPPOSITORY RECTALLY ONCE DAILY AT BEDTIME Rx Instructions: INSERT 1 SUPPOSITORY RECTALLY ONCE DAILY AT BEDTIME quetiapine 25 mg tablet 75 mg PO SEEINSTR Qty: 270 3RF Rx Instructions: TAKE 1 TAB IN AM AND 2 TABS PM. levothyroxine 150 mcg tablet 150 mcg PO DAILY Qty: 90 3RF Rx Instructions: Take one tablet by mouth daily atorvastatin 20 mg tablet 20 mg PO QPM Qty: 90 3RF mirtazapine 15 mg tablet 15 mg PO BEDTIME Qty: 90 3RF sumatriptan succinate 100 mg tablet 100 mg PO DIRECTED cyclosporine [Restasis] 0.05 % dropperette EYE-BOTH acetaminophen [Tylenol Extra Strength] 500 mg tablet 500 mg PO Q6H PRN medical marijuana PO Referrals: Grupo Brooks, [Primary Care Provider] - Stand Alone Forms: Patient Portal/API ED Sign-out <Roxanna Schaeffer MD - Last Filed: 06/18/23 18:10> Cosign ED Attending Cosignature Attestation: I was immediately available in the department for consultation throughout this patient's visit. Roxanna Schaeffer MD
[2023-06-18 15:27] VITALS: BP 126/72; PULSE 107; RESP 14; O2SAT 96
== END 2023-06-18 15:32 | disposition home or self-care (01) ==
PROVIDERS: Emergency Provider Physician Assistant Medical; PCP Family Medicine
DX: I87.8 Other specified disorders of veins (principal)
CPT/HCPCS: 99281

== ENCOUNTER → 2023-09-03 10:36 | Outpatient (CLI) | payer MEDICARE, OTHER, SELFPAY ==
[2023-09-03 11:50] LABS: Alanine Aminotransferase 19 IU/L (<35); Albumin Globulin Ratio 1.4 (1.0-2.8); Alkaline Phosphatase 103 U/L (38-126); Aspartate Aminotransferase 24 IU/L (14-36); Bilirubin Total 0.4 mg/dL (0.2-1.3); Blood Urea Nitrogen 20 mg/dL (7-17); Calcium 9.1 mg/dL (8.4-10.2); Carbon Dioxide 30 mmol/L (22-32); Chloride 105 mmol/L (98-107); Estimated Glomerular Filt Rate > 60 mL/min (>60); Globulin 2.8 g/dL (1.7-4.1); Glucose 115 mg/dL (80-110); HEMOLYSIS < 15 (0-50); Sodium 140 mmol/L (137-145); Total Protein 6.8 g/dL (6.3-8.2)
== END ==
PROVIDERS: PCP Family Medicine; Referring Provider Family Medicine; Visit Provider Family Medicine
DX: R73.03 Prediabetes (principal)
CPT/HCPCS: 36415; 80053

== ENCOUNTER → 2023-12-17 11:02 | Outpatient (CLI) | payer MEDICARE, OTHER, SELFPAY ==
[2023-12-17 12:45] LABS: Alanine Aminotransferase 19 IU/L (<35); Albumin 4.4 g/dL (3.5-5.0); Albumin Globulin Ratio 1.3 (1.0-2.8); Alkaline Phosphatase 105 U/L (38-126); Aspartate Aminotransferase 25 IU/L (14-36); BUN Creatinine Ratio 17.1 (6-22); Bilirubin Total 0.4 mg/dL (0.2-1.3); Blood Urea Nitrogen 19 mg/dL (7-17); Calcium 9.9 mg/dL (8.4-10.2); Carbon Dioxide 28 mmol/L (22-32); Chloride 100 mmol/L (98-107); Estimated Glomerular Filt Rate 51 mL/min (>60); Globulin 3.3 g/dL (1.7-4.1); Glucose 115 mg/dL (80-110); HEMOLYSIS < 15 (0-50); Potassium 3.4 mmol/L (3.4-5.1); Sodium 138 mmol/L (137-145); Total Protein 7.7 g/dL (6.3-8.2)
[2023-12-17 13:06] LABS: Hemoglobin A1C% w Est Avg Glu 6.1 % (4.0-6.0)
[2023-12-17 13:15] LABS: Thyroid Stimulating Hormone 0.359 uIU/mL (0.47-4.68)
== END ==
LOC: LAB 11:03
PROVIDERS: PCP Family Medicine; Referring Provider Family Medicine; Visit Provider Family Medicine
DX: R73.03 Prediabetes (principal); E03.9 Hypothyroidism, unspecified; K21.9 Gastro-esophageal reflux disease without esophagitis; E78.5 Hyperlipidemia, unspecified
CPT/HCPCS: 36415; 80053; 83036; 84439; 84443

== ENCOUNTER 2024-02-09 12:36 | Emergency (ER) | payer MEDICARE, OTHER, SELFPAY ==
[2024-02-09] VITALS (8 sets, daily range): BP systolic 121–139; BP diastolic 57–63; PULSE 93–103; RESP 16–18; TEMP 36.9; O2SAT 95–98; BMI 28.7
--- NOTE | 2024-02-09 14:11 | EKG_ITS ---
[facility] [address] [place] [address] Test Date: 2024-02-09 Pat Name: Julia Richardson Department: [facility] Room: Gender: Female Senior Software Analyst: alberto : 1945 Requested By: Order Number: [id number] Reading MD: Fantasma Cabrera MD Measurements Intervals Cameron Rate: 92 P: 52 MO: 154 QRS: -15 QRSD: 92 T: 13 QT: 364 QTc: 450 Interpretive Statements Normal sinus rhythm Minimal voltage criteria for LVH, may be normal variant ( R in aVL ) Electronically Signed On 02-10-2024 10:00:08 PST by Fantasma Cabrera MD
--- NOTE | 2024-02-09 14:11 | DI.RAD.S_ITS ---
PROCEDURE: XR CHEST 1V INDICATIONS: chest pain TECHNIQUE: One view of the chest was acquired. COMPARISON: None. FINDINGS: Surgical changes and devices: None. Lungs and pleura: Lungs are clear. No pleural effusions or pneumothorax. Mediastinum: Mediastinal contours appear normal. Heart size is normal. Bones and chest wall: No suspicious bony lesions. Overlying soft tissues appear unremarkable. IMPRESSION: No acute cardiopulmonary abnormality is seen. Dictated by: Gregg Brambila M.D. on 02/09/2024 at 14:47 Approved by: Gregg Brambila M.D. on 02/09/2024 at 14:48
[2024-02-09 14:52] LABS: Add Manual Diff / Slide Review NO; Basophils Absolute Auto 100 /uL (0-100); Basophils Percent Auto 0.9 % (0-2); Eosinophils Absolute Auto 100 /uL (0-450); Eosinophils Percent Auto 1.3 % (2-4); Hematocrit 34.3 % (36-46); Hemoglobin 11.6 g/dL (12.0-16.0); Lymphocytes Absolute Auto 1600 /uL (1100-4500); Lymphocytes Percent Auto 20.8 % (25-40); Mean Corpuscular HGB Conc 33.9 % (30-36); Mean Corpuscular Volume 91.4 fL (80-100); Monocytes Absolute Auto 600 /uL (0-900); Neutrophils Absolute Auto 5500 /uL (1500-7000); Platelet Count 376 X10^3/uL (150-400); Red Blood Cell Count 3.75 X10^6/uL (4.0-5.2); Red Cell Distribution Width 14.1 % (11.6-14.8); White Blood Cell Count 7.9 X10^3/uL (4.5-11.0)
[2024-02-09 15:00] LABS: Prothrombin Time 11.1 SECONDS (9.4-12.5)
[2024-02-09 15:02] LABS: PTT Partial Thromboplastin Tim 38 SECONDS (25.1-36.5)
[2024-02-09 15:03] LABS: Alanine Aminotransferase 26 IU/L (<35); Albumin 4.4 g/dL (3.5-5.0); Albumin Globulin Ratio 1.3 (1.0-2.8); Alkaline Phosphatase 118 U/L (38-126); Aspartate Aminotransferase 27 IU/L (14-36); BUN Creatinine Ratio 16.4 (6-22); Bilirubin Total 0.4 mg/dL (0.2-1.3); Blood Urea Nitrogen 22 mg/dL (7-17); Calcium 9.2 mg/dL (8.4-10.2); Carbon Dioxide 25 mmol/L (22-32); Chloride 102 mmol/L (98-107); Creatine Kinase 72 U/L (30-135); Estimated Glomerular Filt Rate 41 mL/min (>60); Globulin 3.5 g/dL (1.7-4.1); Glucose 116 mg/dL (80-110); HEMOLYSIS < 15 (0-50); Lipase 137 U/L (23-300); Magnesium 2.1 mg/dL (1.6-2.3); Potassium 3.7 mmol/L (3.4-5.1); Sodium 138 mmol/L (137-145); Total Protein 7.9 g/dL (6.3-8.2)
[2024-02-09 15:15] LABS: NT-proBNP (BNP-Adult 18+) 36 pg/mL (<450); Troponin I < 0.012 ng/mL (0.01-0.034)
--- NOTE | 2024-02-09 18:20 | DI.US.S_ITS ---
PROCEDURE: US PERIPH VENOUS LOW EXTREM BI INDICATIONS: BLE SWELLING, CALF CRAMPING TECHNIQUE: Real-time imaging, as well as color and pulse Doppler interrogation, were performed of the deep veins of both legs from the inguinal ligament to the popliteal fossa, with documentation of the visualized calf veins. COMPARISON: None. FINDINGS: Right: The common femoral, femoral, popliteal, and the visualized calf veins are normally compressible, and free of intraluminal thrombus. Color and pulse Doppler demonstrate normal phasic intravascular flow. There is normal augmentation response to distal compression maneuver. Left: The common femoral, femoral, popliteal, and the visualized calf veins are normally compressible, and free of intraluminal thrombus. Color and pulse Doppler demonstrate normal phasic intravascular flow. There is normal augmentation response to distal compression maneuver. IMPRESSION: Negative bilateral lower extremity duplex venous ultrasound for DVT. Dictated by: Gregg Brambila M.D. on 02/09/2024 at 19:45 Approved by: Gregg Brambila M.D. on 02/09/2024 at 19:46
--- NOTE | 2024-02-09 18:22 | ED.EXTPRO ---
HPI - Extremity Problem General Chief complaint: Extremity Problem,Nontraumatic Stated complaint: ankle swelling, px sent by Dr Brooks Time Seen by Provider: 02/09/24 15:59 Source: patient Mode of arrival: Ambulatory History of Present Illness HPI Narrative: 78 year old female with history of venous insufficiency, hypertension, mild dementia presents with by private vehicle from home for bilateral lower extremity swelling. Patient states that she has been dealing with swelling for the last year. She gets regular massage therapy and this last week her massage therapist noted that her ankles are more swollen than usual. She called her primary care doctor's office, who referred her to the emergency department for evaluation. Patient reports cramping in her calves. She was not wear compression stockings, but states that she does elevate her feet at rest. She takes triamterene hydrochlorothiazide as prescribed by her primary care doctor. She states that she does not really watch her sodium intake. Related Data Home Medications Medication Instructions Recorded Confirmed calcium carbonate (Tums) 200 mg PO ONCE 06/06/20 12/21/23 cholecalciferol (vitamin D3) 25 2,000 unit PO DAILY 06/06/20 12/21/23 mcg (1,000 unit) capsule lutein-zeaxanthin 1 tab PO DAILY 06/06/20 12/21/23 vit C 250 mg-vit E 90 mg-zinc 40 1 tab PO BID 06/06/20 12/21/23 mg-copper 1 [id number] capsule (PreserVision AREDS-2) cyclosporine 0.05 % eye drops in a drp EYE-BOTH 11/28/21 12/21/23 dropperette (Restasis) acetaminophen 500 mg tablet 500 mg PO Q6H PRN 05/22/22 12/21/23 (Tylenol Extra Strength) medical marijuana PO 05/22/22 12/21/23 sumatriptan succinate 100 mg tablet 100 mg PO DIRECTED 06/09/23 12/21/23 Previous Rx's Medication Instructions Recorded quetiapine 25 mg tablet 75 mg (3 x 25 mg) PO SEEINSTR #270 04/27/23 tabs levothyroxine 150 mcg tablet 150 mcg PO DAILY #90 tabs 06/02/23 mesalamine 1,000 mg rectal See Rx Instructions .Route 07/17/23 suppository .COMPLEX #90 supp memantine 5 mg tablet 5 mg PO BID #90 tabs 07/22/23 triamterene 37.5 1 tab PO BID #180 tabs 09/17/23 mg-hydrochlorothiazide 25 mg tablet (Maxzide-25mg) atorvastatin 20 mg tablet 20 mg PO QPM #90 tabs 12/21/23 mirtazapine 15 mg tablet 15 mg PO BEDTIME #90 tabs 12/21/23 benzonatate 100 mg capsule 100 mg PO BID PRN cough #20 caps 01/08/24 Allergies Allergy/AdvReac Type Severity Reaction Status Date / Time meperidine [From Demerol] AdvReac Intermediate hallucinati Verified 12/21/23 11:42 ons codeine AdvReac Mild hyper Verified 12/21/23 11:42 attentive Patient History Medical History Renal insufficiency, mild Hypertension Pre-diabetes Migraine headache Well adult exam Greater trochanteric bursitis of right hip Lower back pain Abnormal mammogram of left breast Seborrheic keratosis Dementia Swelling of lower extremity Hyperlipidemia GERD (gastroesophageal reflux disease) Preventative health care Hypothyroidism Depression Surgical History History of esophagogastroduodenoscopy (EGD) History of tonsillectomy History of colonoscopy H/O: hysterectomy Family History Father Congestive heart failure Mother Cancer Social History marital status: household members: spouse Smoking Status: Former smoker alcohol intake: current Smoking Status: Former smoker alcohol intake frequency: a few times a week Substance Use Type: marijuana Exam Initial Vital Signs Initial Vital Signs: Vital Signs Temperature 98.4 F 02/09/24 13:00 Pulse Rate 99 H 02/09/24 13:00 Respiratory Rate 16 02/09/24 13:00 Blood Pressure 133/60 02/09/24 13:00 Pulse Oximetry 97 02/09/24 13:00 Oxygen Delivery Method Room Air 02/09/24 13:00 Const: Awake, alert, no acute distress, nontoxic appearing Cardiac: regular rate, regular rhythm RESP: unlabored, clear bilaterally, no wheezing MSK: 2+ pitting edema to mid deleon bilaterally. 2+ DP pulses bilaterally, sensation intact and equal bilaterally Skin: Warm, Dry, intact, no rashes Neuro: AO x3, CN II-XII grossly intact, moves all extremities Course Orders Ordered: ED Orders 02/09/24 18:20 US periph venous low extrem bi Stat Discontinued Medications Aspirin (Aspirin 81 Mg Chew Tab) 324 mg PO NOW ONE Stop: 02/09/24 14:11 Last Admin: 02/09/24 18:25 Dose: Not Given Documented By: TRACIE Furosemide (Furosemide 40 Mg/4 Ml Vial) 20 mg IV NOW ONE Stop: 02/09/24 18:22 Last Admin: 02/09/24 18:32 Dose: 20 mg Documented By: TRACIE Vital Signs Vital signs: Vital Signs - 8 hr 02/09/24 18:12 02/09/24 18:13 02/09/24 18:13 Temperature Pulse Rate 97 H 93 H Respiratory Rate Blood Pressure 139/63 Pulse Oximetry 98 98 Oxygen Delivery Method 02/09/24 18:30 02/09/24 18:31 02/09/24 18:31 Temperature Pulse Rate 103 H 93 H Respiratory Rate Blood Pressure 121/60 Pulse Oximetry 97 95 Oxygen Delivery Method 02/09/24 19:00 02/09/24 19:30 02/09/24 19:54 Temperature 98.4 F Pulse Rate Respiratory Rate 18 Blood Pressure 122/57 L Pulse Oximetry 96 98 Oxygen Delivery Method Room Air MDM - Extremity (Nontraumatic) Lab Data 02/09/24 14:42 02/09/24 14:42 Labs: Lab Results 02/09/24 Range/Units 14:42 WBC 7.9 (4.5-11.0) X10^3/uL RBC 3.75 L (4.0-5.2) X10^6/uL Hgb 11.6 L (12.0-16.0) g/dL Hct 34.3 L (36-46) % MCV 91.4 (80-100) fL MCH 31.0 (26-34) PG MCHC 33.9 (30-36) % RDW 14.1 (11.6-14.8) % Plt Count 376 (150-400) X10^3/uL Neut % (Auto) 70.0 (50-75) % Lymph % (Auto) 20.8 L (25-40) % [place] % (Auto) 7.0 (3-14) % Eos % (Auto) 1.3 L (2-4) % Baso % (Auto) 0.9 (0-2) % Neut # (Auto) 5500 (9621-5695) /uL Lymph # (Auto) 1600 (4296-2859) /uL [place] # (Auto) 600 (0-900) /uL Eos # (Auto) 100 (0-450) /uL Baso # (Auto) 100 (0-100) /uL PT 11.1 (9.4-12.5) SECONDS INR 1.0 (0.9-1.3) APTT 38 H (25.1-36.5) SECONDS Sodium 138 (137-145) mmol/L Potassium 3.7 (3.4-5.1) mmol/L Chloride 102 (98-107) mmol/L Carbon Dioxide 25 (22-32) mmol/L BUN 22 H (7-17) mg/dL Creatinine 1.34 H (0.52-1.04) mg/dL Estimated GFR 41 L (>60) mL/min BUN/Creatinine Ratio 16.4 (6-22) Glucose 116 H (80-110) mg/dL Calcium 9.2 (8.4-10.2) mg/dL Magnesium 2.1 (1.6-2.3) mg/dL Total Bilirubin 0.4 (0.2-1.3) mg/dL AST 27 (14-36) IU/L ALT 26 (<35) IU/L Alkaline Phosphatase 118 (38-126) U/L Total Creatine Kinase 72 (30-135) U/L Troponin I < 0.012 (0.01-0.034) ng/mL NT-Pro-B Natriuret Pep 36 (<450) pg/mL Total Protein 7.9 (6.3-8.2) g/dL Albumin 4.4 (3.5-5.0) g/dL Globulin 3.5 (1.7-4.1) g/dL Albumin/Globulin Ratio 1.3 (1.0-2.8) Lipase 137 (23-300) U/L Imaging Data Chest x-ray: Radiologist's Impression: PROCEDURE: XR CHEST 1V INDICATIONS: chest pain TECHNIQUE: One view of the chest was acquired. COMPARISON: None. FINDINGS: Surgical changes and devices: None. Lungs and pleura: Lungs are clear. No pleural effusions or pneumothorax. Mediastinum: Mediastinal contours appear normal. Heart size is normal. Bones and chest wall: No suspicious bony lesions. Overlying soft tissues appear unremarkable. IMPRESSION: No acute cardiopulmonary abnormality is seen. Dictated by: Gregg Brambila M.D. on 02/09/2024 at 14:47 Approved by: Gregg Brambila M.D. on 02/09/2024 at 14:48 US - DVT: Radiologist's Impression: PROCEDURE: US PERIPH VENOUS LOW EXTREM BI INDICATIONS: BLE SWELLING, CALF CRAMPING TECHNIQUE: Real-time imaging, as well as color and pulse Doppler interrogation, were performed of the deep veins of both legs from the inguinal ligament to the popliteal fossa, with documentation of the visualized calf veins. COMPARISON: None. FINDINGS: Right: The common femoral, femoral, popliteal, and the visualized calf veins are normally compressible, and free of intraluminal thrombus. Color and pulse Doppler demonstrate normal phasic intravascular flow. There is normal augmentation response to distal compression maneuver. Left: The common femoral, femoral, popliteal, and the visualized calf veins are normally compressible, and free of intraluminal thrombus. Color and pulse Doppler demonstrate normal phasic intravascular flow. There is normal augmentation response to distal compression maneuver. IMPRESSION: Negative bilateral lower extremity duplex venous ultrasound for DVT. Dictated by: Gregg Brambila M.D. on 02/09/2024 at 19:45 Approved by: Gregg Brambila M.D. on 02/09/2024 at 19:46 ECG Data Interpretation: Normal sinus rhythm at 92 beats per minute. Normal WI. No ST T wave changes MDM Narrative Medical decision making narrative: Well-appearing patient with worsening of lower extremity swelling. Patient has known history of venous insufficiency and it was not appear to be wearing compression stockings or monitoring her sodium intake. Patient was neurovascularly intact. This is very likely due to noncompliance with compression stockings and sodium monitoring, however since she was complaining of calf cramping ultrasound will be ordered of bilateral lower extremities. Laboratory work is reviewed, no significant abnormalities identified. Ultrasound negative for DVT bilaterally. Patient was already on maximum dose of triamterene hydrochlorothiazide. Patient counseled to continue her medications as prescribed. She was counseled to wear compression stockings and to continue to elevate her legs when at rest. She was advised to monitor her sodium intake to decrease swelling. A single dose of IV Lasix was given to patient prior to discharge from the emergency department. PCP follow up advised. Discharge Plan Departure Patient Disposition: Home Clinical Impression: Venous insufficiency, Edema, peripheral Instructions: DI for Dependent Edema Activity Restrictions/Additional Instructions: Your laboratory work today was reassuring. You do not have any blood clots in your lower legs. Wear compression stockings during the day and when you are resting elevate your legs above heart level. Continue your current dosing of medications. Decrease your salt intake. Please follow up with the primary care doctor. Prescriptions: No Action cholecalciferol (vitamin D3) 25 mcg (1,000 unit) capsule 2,000 unit PO DAILY calcium carbonate [Tums] 200 mg calcium (500 mg) tablet,chewable 200 mg PO ONCE Patient Comments: The patient states it has been a while since I took TUMS lutein-zeaxanthin 1 tab PO DAILY PreserVision AREDS-2 250-90-40-1 mg capsule 1 tab PO BID quetiapine 25 mg tablet 75 mg PO SEEINSTR Qty: 270 3RF Rx Instructions: TAKE 1 TAB IN AM AND 2 TABS PM. levothyroxine 150 mcg tablet 150 mcg PO DAILY Qty: 90 3RF Rx Instructions: Take one tablet by mouth daily mesalamine 1,000 mg suppository See Rx Instructions .ROUTE .COMPLEX Qty: 90 1RF Dose Instruction: INSERT 1 SUPPOSITORY RECTALLY ONCE DAILY AT BEDTIME Rx Instructions: INSERT 1 SUPPOSITORY RECTALLY ONCE DAILY AT BEDTIME memantine 5 mg tablet 5 mg PO BID Qty: 90 3RF benzonatate 100 mg capsule 100 mg PO BID PRN (Reason: cough) Qty: 20 0RF sumatriptan succinate 100 mg tablet 100 mg PO DIRECTED triamterene-hydrochlorothiazid [Maxzide-25mg] 37.5-25 mg tablet 1 tab PO BID Qty: 180 3RF cyclosporine [Restasis] 0.05 % dropperette EYE-BOTH acetaminophen [Tylenol Extra Strength] 500 mg tablet 500 mg PO Q6H PRN medical marijuana PO mirtazapine 15 mg tablet 15 mg PO BEDTIME Qty: 90 3RF atorvastatin 20 mg tablet 20 mg PO QPM Qty: 90 3RF Referrals: [facility]upo Brooks, [Primary Care Provider] - Stand Alone Forms: Patient Portal/API/Survey
[2024-02-09] MEDS: FUROSEMIDE 40 MG/4 ML VIAL 20 MG IV (18:32)
== END 2024-02-09 19:55 | disposition home or self-care (01) ==
PROVIDERS: Emergency Medicine; Emergency Provider Emergency Medicine; PCP Family Medicine
DX: R60.0 Localized edema (principal); I87.2 Venous insufficiency (chronic) (peripheral); R07.9 Chest pain, unspecified
CPT/HCPCS: 36415; 71045; 80053; 82550; 83690; 83735; 83880; 84484; 85025; 85610; 85730; 93005; 93010; 93970; 96374; 99284; J1940

== ENCOUNTER → 2024-07-05 13:12 | Outpatient (CLI) | payer MEDICARE, OTHER, SELFPAY ==
[2024-07-05 15:17] LABS: Alanine Aminotransferase 23 IU/L (<35); Albumin 4.3 g/dL (3.5-5.0); Albumin Globulin Ratio 1.4 (1.0-2.8); Alkaline Phosphatase 114 U/L (38-126); Aspartate Aminotransferase 27 IU/L (14-36); BUN Creatinine Ratio 18.1 (6-22); Bilirubin Total 0.6 mg/dL (0.2-1.3); Blood Urea Nitrogen 21 mg/dL (7-17); Calcium 9.7 mg/dL (8.4-10.2); Carbon Dioxide 25 mmol/L (22-32); Chloride 101 mmol/L (98-107); Estimated Glomerular Filt Rate 48 mL/min (>60); Glucose 110 mg/dL (80-110); HEMOLYSIS < 15 (0-50); Potassium 3.8 mmol/L (3.4-5.1); Sodium 137 mmol/L (137-145); Total Protein 7.3 g/dL (6.3-8.2)
[2024-07-05 15:22] LABS: Hemoglobin A1C% w Est Avg Glu 5.8 % (4.0-6.0)
[2024-07-05 15:34] LABS: Free T4, Direct Thyroxine 1.64 ng/dL (0.78-2.19)
[2024-07-05 15:48] LABS: Thyroid Stimulating Hormone 0.268 uIU/mL (0.47-4.68)
== END ==
PROVIDERS: PCP Family Medicine; Referring Provider Family Medicine; Visit Provider Family Medicine
DX: R73.03 Prediabetes (principal); I10 Essential (primary) hypertension; E78.5 Hyperlipidemia, unspecified; E03.9 Hypothyroidism, unspecified
CPT/HCPCS: 36415; 80053; 83036; 84439; 84443

== ENCOUNTER → 2024-12-06 12:33 | Outpatient (CLI) | payer MEDICARE, OTHER, SELFPAY ==
[2024-12-06 12:59] LABS: Add Manual Diff / Slide Review NO; Hematocrit 35.4 % (36-46); Hemoglobin 11.9 g/dL (12.0-16.0); Lymphocytes Absolute Auto 1500 /uL (1100-4500); Mean Corpuscular HGB Conc 33.6 % (30-36); Mean Corpuscular Hemoglobin 30.4 PG (26-34); Mean Corpuscular Volume 90.5 fL (80-100); Platelet Count 375 X10^3/uL (150-400)
[2024-12-06 13:15] LABS: Alanine Aminotransferase 25 IU/L (<35); Albumin 4.4 g/dL (3.5-5.0); Albumin Globulin Ratio 1.4 (1.0-2.8); Alkaline Phosphatase 91 U/L (38-126); Blood Urea Nitrogen 15 mg/dL (7-17); Calcium 9.5 mg/dL (8.4-10.2); Carbon Dioxide 26 mmol/L (22-32); Chloride 102 mmol/L (98-107); Estimated Glomerular Filt Rate 47 mL/min (>60); Globulin 3.1 g/dL (1.7-4.1); Glucose 103 mg/dL (70-99); HEMOLYSIS < 15 (0-50); Hemoglobin A1C% w Est Avg Glu 6.5 % (4.0-6.0); Potassium 4.1 mmol/L (3.4-5.1); Sodium 138 mmol/L (137-145); Total Protein 7.5 g/dL (6.3-8.2)
[2024-12-06 13:16] LABS: HEMOLYSIS < 15 (0-50); Iron 51 ug/dL (37-170)
[2024-12-06 13:28] LABS: Percent Iron Saturation 17 % (15-50); Total Iron Binding Capacity 302 ug/dL (265-497); Transferrin 267 mg/dL (206-381)
[2024-12-06 13:29] LABS: Free T4, Direct Thyroxine 1.69 ng/dL (0.78-2.19)
[2024-12-06 13:43] LABS: Thyroid Stimulating Hormone 0.193 uIU/mL (0.47-4.68)
[2024-12-06 14:02] LABS: Vitamin B12 213 pg/mL (239-931)
== END ==
PROVIDERS: PCP Family Medicine; Referring Provider Family Medicine; Visit Provider Family Medicine
DX: N28.9 Disorder of kidney and ureter, unspecified (principal); R73.03 Prediabetes; E78.2 Mixed hyperlipidemia; I10 Essential (primary) hypertension; E03.9 Hypothyroidism, unspecified
CPT/HCPCS: 36415; 80053; 82607; 83036; 83540; 83550; 84439; 84443; 85025